=== PATIENT | male | born 1985 | race Caucasian/White ===

== ENCOUNTER 2019-05-08 10:11 | Emergency (ER) | payer OTHER, SELFPAY ==
--- NOTE | ~2019-05-08 | XR_ITS ---
XR ankle LT min 3V, XR foot LT min 3V 05/08/2019 10:54 Indication: Left ankle and foot pain. History of gout. Procedure: 4 views left foot and 2 views left ankle Comparison: No prior studies for comparison. Findings: There are degenerative changes of the tibiotalar joint. Ankle mortise intact. Mild osteoart hritis of the first MTP joint. No erosive changes. Lisfranc joint intact. No fracture or traumatic ma lalignment. No focal soft tissue abnormality. No foreign bodies. Impression: 1: Polyarticular osteoarthritis. Reviewed, dictated and finalized at location A. [facility]IST Impression: 1: Polyarticular osteoarthritis. Impression: 1: Polyarticular osteoarthritis.
--- NOTE | 2019-05-08 10:42 | ED.LOWEXIN ---
HPI - Extremity Injury (Lower) General Chief Complaint: Extremity Injury, Lower Stated Complaint: pain in left foot, ankle, and lower leg Time Seen by Provider: 05/08/19 10:35 Source: patient Mode of arrival: ambulatory Limitations: other (See HPI) History of Present Illness HPI Narrative: Sulaiman is a 33-year-old male patient. He comes ambulatory to the emergency room. He is using crutches. Sulaiman states that he has had pain in the left ankle and foot for the past 2 days. Sulaiman has history of gout. He takes allopurinol for this. He rates the pain at 4/10. There is no obvious swelling. Sulaiman says that walking actually makes it feel slightly better. There is no history of any injury MD complaint: other ( see HPI narrative) Onset (ago): day(s) ( 2 days) Injury: Left: ankle and foot Type of Injury: other ( no injury) Severity scale (1-10): 4 Relieving factors: other ( usually allopurinol helps it. Has noted above, given says that walking actually helps a little bit) Exacerbating factors: other ( see HPI narrative) Context: other ( see HPI narrative) Associated symptoms: other ( no numbness or tingling. Sulaiman is using crutches.) Other symptoms: other ( None) Treatments prior to arrival: other ( none) Related Data Home Medications Medication Instructions Recorded Confirmed allopurinol 300 mg PO DAILY 03/19/19 05/08/19 fluoxetine 40 mg PO DAILY 03/19/19 05/08/19 levothyroxine 400 mcg PO DAILY 03/19/19 05/08/19 lisinopril 20 mg PO DAILY 03/19/19 05/08/19 Allergies Allergy/AdvReac Type Severity Reaction Status Date / Time vancomycin Allergy Hives Verified 05/08/19 10:39 Review of Systems Review of Systems: All systems reviewed & are unremarkable except as noted in HPI and below Constitutional: Constitutional: Reports as per HPI, Reports no additional constitutional complaints, Denies chills, Denies fever(s) and Denies weakness Eyes: Eyes: Reports as per HPI, Reports no additional eye complaints and Denies change in vision ENT: Reports system reviewed and no additional complaints, except as documented, Reports as per HPI, Denies dizziness, Denies nasal congestion and Denies sore throat Cardiovascular: Cardiovascular: Reports as per HPI, Reports no additional cardiovascular complaints, Denies chest pain and Denies radiating jaw, neck or arm pain Respiratory: Respiratory: Reports as per HPI, Reports no additional respiratory complaints, Denies cough and Denies dyspnea Gastrointestinal: Gastrointestinal: Reports as per HPI, Reports no additional gastrointestinal complaints, Denies abdominal pain, Denies nausea and Denies vomiting Genitourinary: Genitourinary: Reports no additional male genitourinary complaints, Denies hematuria and Denies dysuria Musculoskeletal: Musculoskeletal: Reports arthralgias Comments: see HPI narrative for details Integumentary/Breasts: Skin/Breast: Reports system reviewed and no additional complaints, except as docu, Denies pruritus and Denies rash Neurologic: Reports system reviewed and no additional complaints, except as documented, Reports as per HPI, Denies dizziness, Denies syncope, Denies focal weakness and Denies weakness Psychiatric: Psychiatric: Reports no additional psychiatric complaints, Reports anxiety and Reports depression Endocrine: Comments: history of hypothyroidism Hematologic/Lymphatic: Hematologic/Lymphatic: Reports no additional hematologic/lymphatic complaints, Denies easy bleeding and Denies easy bruising Allergic/Immunologic: Allergic/Immunologic: Reports no additional allergic/immunologic complaints, Denies lip swelling and Denies tongue swelling PMF Family History Family History (Updated 05/08/19 @ 10:49 by Robbie Anne MD) Father Heart disease Social History Social History (Updated 05/08/19 @ 10:50 by Robbie Anne MD) Smoking packs per day: 0.5 Smoking cigarettes per day: 10.0 Smoking status: Current every day smoker Alcohol
[2019-05-08 10:44] VITALS: BP 147/98; PULSE 99; RESP 17; TEMP 36.3; O2SAT 96
[2019-05-08 11:51] VITALS: RESP 16
== END 2019-05-08 11:52 | disposition home or self-care (01) ==
PROVIDERS: Emergency Provider Surgery; PCP Physician Assistant
DX: M25.572 Pain in left ankle and joints of left foot (principal)
CPT/HCPCS: 36415; 73610; 73630; 84550; 99282; 99283

== ENCOUNTER 2021-12-04 23:46 | Emergency (ER) | payer SELFPAY ==
--- NOTE | 2021-12-05 00:12 | ED.NAVMDI ---
HPI - Nausea/Vomiting/Diarrhea General Chief complaint: Nausea/Vomiting/Diarrhea Stated complaint: Sickness Time Seen by Provider: 12/05/21 00:10 Source: patient and RN notes reviewed Mode of arrival: ambulatory Limitations: no limitations History of Present Illness MD elicited complaint: nausea, vomiting and diarrhea Onset (ago): hour(s) (13) Description of vomiting: watery and bilious Description of diarrhea: watery Associated nausea: Yes Associated abdominal pain: No Exacerbating factors: eating Relieving factors: none Context: sick contacts ( for other people in household started with same symptoms 2 days ago) Associated symptoms: denies other symptoms Related Data Home Medications Medication Instructions Recorded Confirmed allopurinol 300 mg tablet 300 mg PO DAILY 03/19/19 12/05/21 levothyroxine 200 mcg tablet 175 mcg PO DAILY 03/19/19 12/05/21 lisinopril 20 mg tablet 20 mg PO DAILY 03/19/19 12/05/21 bupropion HCl 150 mg tablet,12 hr 150 mg PO BID 12/05/21 12/05/21 sustained-release fenofibrate 160 mg tablet 160 mg PO DAILY 12/05/21 12/05/21 fluoxetine 40 mg capsule 40 mg PO DAILY 12/05/21 12/05/21 hydroxyzine HCl 25 mg tablet 25 mg PO QID 12/05/21 12/05/21 insulin glargine 100 unit/mL (3 40 unit subcut HS 12/05/21 12/05/21 mL) subcutaneous pen (Lantus Solostar U-100 Insulin) liraglutide 0.6 mg/0.1 mL (18 mg/3 1.8 mg subcut HS 12/05/21 12/05/21 mL) subcutaneous pen injector (Victoza 3-Jhonatan) montelukast 10 mg tablet 10 mg PO DAILY 12/05/21 12/05/21 triamcinolone acetonide 0.1 % 1 applic topical DAILY PRN Rash 12/05/21 12/05/21 topical cream Allergies Allergy/AdvReac Type Severity Reaction Status Date / Time vancomycin Allergy Hives Verified 05/08/19 10:39 Review of Systems Review of Systems: All systems reviewed & are unremarkable except as noted in HPI and below Constitutional: Constitutional: Denies chills and Denies fever(s) ENT: Denies sore throat Respiratory: Respiratory: Denies chest congestion and Denies cough Musculoskeletal: Musculoskeletal: Denies myalgias [facility] Past Medical History Medical History (Updated 12/05/21 @ 01:22 by Asad Ellington MD) Depression Eczema Gout Hypertension Hypothyroidism Type 2 diabetes mellitus Surgical History Surgical History History of colonoscopy History of hip surgery Family History Family History Father Heart disease Social History Social History Smoking packs per day: 0.5 Smoking cigarettes per day: 10.0 Smoking status: Current every day smoker Alcohol intake: never Substance use: never Exam Const: General: healthy appearing, no acute distress and alert Nutritional Appearance: well nourished Orientation/consciousness: patient oriented x3 Limitations: no limitations HENMT: Head: normal to inspection Ears: external ears normal Eyes: Conjunctivae: conjunctivae normal Pupils: Equal, round and reactive pupils present EOM: EOMs intact bilaterally Neck: Neck: normal visual inspection Resp: Effort & Inspection: normal respiratory effort Auscultation: clear to auscultation bilaterally Cardio: Rate: regular rate Rhythm: regular rhythm GI: GI Palp: Yes Soft to palpation, No Tenderness to palpation present (GI) and No Guarding due to palpation present (GI) Auscultation: normal bowel sounds Back/Spine/Pelvis: Cervical Spine: cervical ROM normal Thoracic/Lumbar Spine: thoraco-lumbar ROM normal Skin: General skin exam: normal color Rashes: no rashes Neuro: General: patient oriented x3, moves all extremities, no focal motor deficits and CN's II-XI intact bilaterally Speech: normal speech Gait exam (Neuro): Normal gait present Extrem: General: normal to inspection and no clubbing, cyanosis or edema Psych: Mental Status: mental status gross
[2021-12-05 00:16] VITALS: BP 136/94; PULSE 110; RESP 17; TEMP 36.4; O2SAT 96
[2021-12-05 00:37] LABS: Basophils Absolute Auto 0.03 K/mm3 (0.00-0.10); Basophils Percent Auto 0.2 % (0.0-1.0); Eosinophils Absolute Auto 0.61 K/mm3 (0.02-0.50); Hematocrit 44.4 % (40.0-54.0); Hemoglobin 14.7 g/dL (14.0-18.0); Immature Granulocyte Absolute 0.07 K/mm3 (0.00-0.00); Immature Granulocyte Percent A 0.5 % (0.0-0.0); Lymphocytes Absolute Auto 1.71 K/mm3 (1.10-4.50); Lymphocytes Percent Auto 11.1 % (18.0-42.0); Mean Corpuscular HGB Conc 33.1 g/dL (32.0-36.0); Mean Corpuscular Hemoglobin 29.6 pg (27.0-31.0); Mean Corpuscular Volume 89.3 fL (78.0-102.0); Mean Platelet Volume 10.7 fl (8.7-11.0); Monocytes Absolute Auto 0.94 K/mm3 (0.10-0.90); Monocytes Percent Auto 6.1 % (2.0-11.0); Neutrophils Absolute Auto 12.1 K/mm3 (1.7-7.2); Neutrophils Percent Auto 78.1 % (50.0-70.0); Platelet Count Result 365 K/mm3 (150-420); Red Blood Count 4.97 M/mm3 (4.70-6.10); Red Cell Distribution Width 12.9 % (11.6-14.4); White Blood Count 15.4 K/mm3 (4.8-10.8)
[2021-12-05 00:52] LABS: Lactic Acid Reflex 1.4 mmol/L (0.4-2.0)
[2021-12-05 00:59] LABS: Alanine Aminotransferase 38 U/L (16-63); Albumin Level 4.3 g/dL (3.4-5.0); Alkaline Phosphatase 86 U/L (46-116); Anion Gap 10 mmol/L (8-16); Aspartate Amino Transferase 30 U/L (15-37); Bilirubin,Total 0.4 mg/dL (0.00-1.00); Blood Urea Nitrogen 10 mg/dL (7-18); Calcium 9.3 mg/dL (8.5-10.1); Carbon Dioxide 27 mmol/L (21-32); Chloride 102 mmol/L (98-108); Estimated CRCL calculation 120 ml/min; Estimated Glomerular Filt Rate > 60; Glucose 197 mg/dL (70-99); Lipase 63 U/L (73-393); Osmolality Calculated 292 mOsm/kg (285-295); Potassium 3.6 mmol/L (3.5-5.1); Sodium 139 mmol/L (136-145); Total Protein 8.3 g/dL (6.4-8.2)
[2021-12-05 01:00] LABS: Amylase 24 U/L (25-115)
[2021-12-05 02:07] VITALS: BP 129/88; PULSE 105; RESP 19; TEMP 36.8; O2SAT 98
== END 2021-12-05 02:08 | disposition home or self-care (01) ==
PROVIDERS: Emergency Provider Emergency Medicine; PCP Physician Assistant
DX: K52.9 Noninfective gastroenteritis and colitis, unspecified (principal)
CPT/HCPCS: 36415; 80053; 82150; 83605; 83690; 85025; 99283